=== PATIENT | male | born 1985 | race Two or more races ===

== ENCOUNTER 2024-11-18 20:12 | Emergency (ER) | payer MEDICAID, OTHER ==
[~2024-11-18] VITALS: Ht 162.6 cm; Wt 82.3 kg
[2024-11-18 20:30] VITALS: BP 147/92; PULSE 88; RESP 20; TEMP 98; O2SAT 96
--- NOTE | 2024-11-18 23:34 | ED.PDOC ---
SOB-HPI HPI Comments This is a 39-year-old male presents to the ED chief complaint fever and cough x1 week. He notes related symptoms of nasal discharge, throat pain and swelling. Notes no other ill contacts at home. Using [id number] Tylenol Motrin DayQuil and NyQuil with little relief. Denies difficulty breathing, shortness breath, chest pain, vomiting or diarrhea reports no recent travel. Chief Complaint: Flu like Time Seen by MD: 20:13 Reviewed notes: Nurses Notes, Medications, Allergies Information Source: Patient Mode of Arrival: Ambulatory Past Medical History PAST MEDICAL HISTORY: Denies Surgical History: Denies all surgeries Family History Family History: Reviewed,noncontributory to illness Social History Smoker: Non-Smoker Alcohol: Denies ETOH Use Drugs: Denies Drug Use Constitutional: reports: fatigue, fever; denies: chills, diaphoresis, malaise, sweats, weakness, others EENTM: reports: nasal discharge, throat pain, throat swelling; denies: blurred vision, double vision, ear bleeding, ear discharge, ear drainage, ear pain, ear ringing, eye pain, eye redness, hearing loss, mouth pain, mouth swelling, nose bleeding, nose congestion, nose pain, photophobia, tearing, voice changes, others Respiratory: reports: cough; denies: hemoptysis, orthopnea, SOB at rest, shortness of breath, SOB with excertion, stridor, wheezing, others Cardiovascular: denies: chest pain, dizzy spells, diaphoresis, Dyspnea on exertion, edema, irregular heart beat, left arm pain, lightheadedness, palpitations, PND, syncope, others Gastrointestinal: denies: abdomen distended, abdominal pain, blood streaked bowels, constipated, diarrhea, dysphagia, difficulty swallowing, hematemesis, melena, nausea, poor appetite, poor fluid intake, rectal bleeding, rectal pain, vomiting, others Genitourinary: denies: burning, dysuria, flank pain, frequency, hematuria, incontinence, penile discharge, penile sore, pain, testicle pain, testicle swelling, urgency, others Neurological: denies: dizziness, fainting, headache, left sided numbness, left sided weakness, numbness, paresthesia, pre-existing deficit, right sided numbness, right sided weakness, seizure, speech problems, tingling, tremors, weakness, others Musculoskeletal: denies: back pain, gout, joint pain, joint swelling, muscle pain, muscle stiffness, neck pain, others Integumetry: denies: bruises, change in color, change in hair/nails, dryness, laceration, lesions, lumps, rash, wounds, others Allergic/Immunocompromised: denies: Difficulty Healing, Frequent Infections, Hi ves, Itching, others Hematologic/Lymphatic: denies: anemia, blood clots, easy bleeding, easy bruising, swollen glands, others Endocrine: denies: excessive hunger, excessive sweating, excessive thirst, excessive urination, flushing, intolerance to cold, intolerance to heat, unexplained weight gain, unexplained weight loss, others Psychiatric: denies: anxiety, bipolar disorder, depression, hopeless, panic disorder, schizophrenia, sleepless, suicidal, others Physical Exam General Appearance: No Apparent Distress, Normal HEENT: Pharyngeal Erythema, TMs Normal, Tonsillar Exudate Neck: Full Range of Motion, Non-Tender Respiratory: Lungs Clear, No Respiratory Distress, Normal Breath Sounds Cardiovascular: No Edema, No JVD, No Murmur, No Gallop, Normal Peripheral Pulses, Regular Rate/Rhythm Breast Exam: Deferred Gastrointestinal: No Organomegaly, Non Tender, No Pulsatile Mass, Normal Bowel Sounds, Soft Genitalia: Deferred Pelvic: Deferred Rectal: Deferred Extremities: Normal capillary refill, Normal inspection, Normal range of motion, Non-tender, No pedal edema Musculoskeletal : Apperance: Normal Neurologic: Alert, line installer II-XII nml as Tested, No Motor Deficits, Normal Affect, Normal Mood, No Sensory Deficits Cerebellar Function: Normal Reflexes: Normal Skin: Dry, Normal Color, Warm Lymphatic: No Adenopathy Was a procedure done? Was a procedure done?: No Differential Dx Differential Diagnosis: Asthma, Bronchitis, Pneumonia, Sinusitis, Allergic Rhinitis, Otitis Media X-Ray, Labs, Meds, VS Vital Signs Date Time Temp Pulse Resp B/P (MAP) Pulse Ox O2 Delivery O2 Flow Rate FiO2 11/18/24 20:30 98.0 88 20 147/92 (110) 96 11/18/24 20:30 98.0 88 20 147/92 (110) 96 98.0 11/18/24 20:30 Room Air X-Ray, Labs, Meds, VS Comment Likely bacterial symptoms x9 days noted intermittent fevers. Patient given Dec adron 10 mg IM and Rocephin 1 g IM. Script cough medication promethazine and Augmentin twice daily x7 days. Advised to rest increase p.o. fluids with electrolytes [id number] Tylenol or Motrin as needed for pain or fever follow up with your PCP in 2-3 days as necessary ER return precautions given patient agrees with discharge care plan. Time of 1ST Reevaluation: 23:48 Reevaluation 1ST: Improved Patient Education/Counseling: Diagnosis, Treatment, Prognosis, Need For Follow Up Family Education/Counseling: No Family Present Departure 1 Departure Time of Disposition: 23:41 Impression: Primary Impression: Upper respiratory tract infection Qualified Codes: J06.9 - Acute upper respiratory infection, unspecified Disposition: HOME / SELF CARE / HOMELESS Condition: Stable e-Prescriptions Promethazine-Dm (Promethazine Dm 6.25-15 mg/5Ml) 1 Janette Janette 5 ML PO QID PRN for 3 Days, #60 ML Prov: HENRI GUILLEN 11/18/24 Amoxicillin & Pot Clavulanate (AUGMENTIN TABLET) 875 Mg Tb 1 TAB PO BID for 7 Days, #14 TAB Prov: HENRI GUILLEN 11/18/24 Discharged With: Self Critical Care Note Critical Care Time?: No Stability Stability form required: No Heart Score Heart Score: Heart Score Response (Comments) Value History N/A 0 EKG N/A 0 Age <45 0 Risk Factors N/A 0 Troponin N/A 0 Total 0 HENRI GUILLEN Nov 18, 2024 23:34
[2024-11-18] MEDS ORDERED: AUG875T PO (23:44)
[2024-11-18] MEDS ORDERED: PROM1SOL4 PO (23:44)
[2024-11-18] MEDS: DexAMETHasone SOD PHOS 10MG/1ML VIAL INJ IM ONE (23:59)
[2024-11-18] MEDS: cefTRIAXone SOD 1,000 MG VL IM ONE (23:59)
== END 2024-11-19 00:02 | disposition home or self-care (01) ==
LOC: ER 20:12
DX: J06.9 Acute upper respiratory infection, unspecified (principal)
CPT/HCPCS: 96372; 99284; J0696; J1100